=== PATIENT | female | born 1990 | race Caucasian/White ===

== ENCOUNTER → 2018-05-06 | Outpatient (CLI) | payer OTHER ==
[~2018-05-06] MED LIST: AMOXICILLIN875 MG PO; DEPO-PROVER150 MG/M1 IM; NIKKI1 TAB PO; NORCO 325 MG-51 TAB PO; OMNICEF 300MG300 MG PO; TENEX2 MG PO; VYVANSE70 MG PO; ZOFRAN 4MG T4 MG/TAB PO
== END ==
LOC: COL.RAD 09:15
DX: M19.011 Primary osteoarthritis, right shoulder (principal)
CPT/HCPCS: A9585; Q9967